=== PATIENT | male | born 1985 | race Caucasian/White ===

== ENCOUNTER 2019-06-04 22:24 | Inpatient (IN) | payer OTHER ==
[~2019-06-04] VITALS: Ht 177.8 cm; Wt 53.9 kg
[2019-06-04 22:52] LABS: BASOPHILS # (AUTO) 0.03 x10^3/uL (0-0.1); BASOPHILS % (AUTO) 0 % (0-1); EOSINOPHILS % (AUTO) 1 % (1-7); LYMPHOCYTES # (AUTO) 2.52 x10^3/uL (1-3.4); LYMPHOCYTES % (AUTO) 36 % (22-44); MD NO; MEAN CORPUSCULAR HEMOGLOBIN 31.6 pg (27.5-34.5); MEAN CORPUSCULAR HGB CONC 33.9 g/dL (33.2-36.2); MEAN CORPUSCULAR VOLUME 93.3 fL (81-97); MEAN PLATELET VOLUME 9.9 fL (7.4-10.4); MONOCYTES % (AUTO) 10 % (2-9); NEUTROPHILS # (AUTO) 3.75 x10^3/uL (1.8-6.8); NEUTROPHILS % (AUTO) 53 % (42-75); PLATELET COUNT 258 x10^3/uL (130-400); RED BLOOD COUNT 3.53 x10^6/uL (4.38-5.82); RED CELL DISTRIBUTION WIDTH 12.9 % (9.4-14.8)
--- NOTE | 2019-06-04 22:59 | NUR ---
TASK RN: LAB CALLED AND REPORTED AN ABG WAS DRAWN VS. VENOUS BLOOD GAS; SPOKE WITH DR. QUARLES AND PER HIM ORDER TO BE CHAGNED TO ABG. LAB RUNNING BLOOD NOW.
[2019-06-04] MEDS ORDERED: SODIUM CHLORIDE 0.9% 1,000ML IVBOLUS ONE ×2 (23:00→23:30)
[2019-06-04 23:05] LABS: ALANINE AMINOTRANSFERASE 18 U/L (12-78); ANION GAP 10 mmol/L (5-15); CALCIUM 8.5 mg/dL (8.5-10.1); CHLORIDE 87 mmol/L (98-107); CREATININE 1.63 mg/dL (0.7-1.3)
[2019-06-04 23:12] LABS: ALKALINE PHOSPHATASE 66 U/L (45-117)
[2019-06-04 23:12] LABS: MICROSCOPIC NOT IND
[2019-06-04 23:16] LABS: ACETONE, SERUM Small (20mg/dL) mg/dL (Negative)
[2019-06-04 23:21] LABS: CULTURE INDICATED? NO
[2019-06-04] MEDS ORDERED: INSULIN REGULAR 100 UNITS/ML, 3ML VIAL IVPush ONE (23:30)
[2019-06-04] MEDS ORDERED: INSULIN SINGLE DOSE, ER ONE ×2 (23:38→23:40)
[2019-06-05] MEDS ORDERED: ONDANSETRON ODT 4 MG PO PRN
[2019-06-05] MEDS ORDERED: POLYETHYLENE GLYCOL 17 GM PACKET PO PRN
[2019-06-05] MEDS ORDERED: BISACODYL 10 MG SUPP PR PRN
[2019-06-05] MEDS ORDERED: ACETAMINOPHEN 325 MG TABLET PO PRN
[2019-06-05] MEDS ORDERED: NAPR500T8 PO (00:25)
[2019-06-05] MEDS ORDERED: ACYC-114 PO (00:26)
[2019-06-05] MEDS ORDERED: PANT40TA5 PO (00:27)
[2019-06-05] MEDS ORDERED: TRAZ-137 PO (00:29)
[2019-06-05] MEDS ORDERED: GING550C2 PO (00:31)
[2019-06-05] MEDS ORDERED: ASCO500C2 PO (00:31)
[2019-06-05] MEDS ORDERED: OMEG1CAP23 PO (00:32)
[2019-06-05 01:10] VITALS: BP 116/71
[2019-06-05] MEDS: NICOTINE 21 MG/24 HR PATCH.TD24 TD SCH (01:53)
[2019-06-05] MEDS: INSULIN LISPRO 100 UNITS/ML, PEN SQ-INSULIN SCH ×6 (02:01→21:48)
[2019-06-05 05:58] LABS: BASOPHILS # (AUTO) 0.07 x10^3/uL (0-0.1); BASOPHILS % (AUTO) 1 % (0-1); EOSINOPHILS # (AUTO) 0.18 x10^3/uL (0-0.4); EOSINOPHILS % (AUTO) 2 % (1-7); LYMPHOCYTES % (AUTO) 55 % (22-44); MD NO; MEAN CORPUSCULAR HEMOGLOBIN 31.3 pg (27.5-34.5); MEAN CORPUSCULAR HGB CONC 33.8 g/dL (33.2-36.2); MEAN CORPUSCULAR VOLUME 92.7 fL (81-97); MEAN PLATELET VOLUME 9.6 fL (7.4-10.4); MONOCYTES # (AUTO) 0.89 x10^3/uL (0.2-0.8); MONOCYTES % (AUTO) 11 % (2-9); NEUTROPHILS % (AUTO) 32 % (42-75); PLATELET COUNT 289 x10^3/uL (130-400); RED BLOOD COUNT 3.53 x10^6/uL (4.38-5.82)
[2019-06-05] MEDS: SODIUM CHLORIDE 0.9% 1,000 ML IV SCH ×2 (05:58)
[2019-06-05 06:07] LABS: ALBUMIN 3.7 g/dL (3.4-5.0); ANION GAP 6 mmol/L (5-15); CALCIUM 8.5 mg/dL (8.5-10.1); CHLORIDE 109 mmol/L (98-107)
[2019-06-05 06:13] LABS: ALANINE AMINOTRANSFERASE 18 U/L (12-78); ALKALINE PHOSPHATASE 56 U/L (45-117); BILIRUBIN,TOTAL 0.9 mg/dL (0.2-1.0); CREATININE 1.12 mg/dL (0.7-1.3); TOTAL PROTEIN 6.4 g/dL (6.4-8.2)
[2019-06-05] MEDS ORDERED: SENNA/DOCUSATE TABLET PO SCH (09:00)
[2019-06-05 12:38] VITALS: BP 141/89
[2019-06-05] MEDS: INSULIN GLARGINE 100 UNITS/ML, PEN SQ-INSULIN SCH ×2 (13:20→21:47)
[2019-06-05 18:41] VITALS: BP 153/81
[2019-06-06] MEDS ORDERED: SODIUM CHLORIDE 0.9% 1,000 ML IV SCH ×2
[2019-06-06 00:29] VITALS: BP 133/73
[2019-06-06] MEDS: NICOTINE 21 MG/24 HR PATCH.TD24 TD SCH (02:13)
[2019-06-06] MEDS: INSULIN LISPRO 100 UNITS/ML, PEN SQ-INSULIN SCH ×2 (02:26→06:16)
[2019-06-06 04:58] LABS: ANION GAP 5 mmol/L (5-15); CHLORIDE 111 mmol/L (98-107)
[2019-06-06 05:01] LABS: CALCIUM 8.3 mg/dL (8.5-10.1); CREATININE 0.92 mg/dL (0.7-1.3)
[2019-06-06 08:19] VITALS: BP 126/82
== END 2019-06-06 09:16 | disposition left against medical advice (07) | DRG 638 ==
LOC: ED 06-05 00:23 → EDIP 06-05 00:33 → 3N 06-05 01:00
PROVIDERS: ADMIT Internal Medicine; ATTEND Internal Medicine
DX: E10.65 Type 1 diabetes mellitus with hyperglycemia (principal); N17.9 Acute kidney failure, unspecified; E87.1 Hypo-osmolality and hyponatremia; D64.9 Anemia, unspecified; F17.210 Nicotine dependence, cigarettes, uncomplicated; F31.9 Bipolar disorder, unspecified; I11.0 Hypertensive heart disease with heart failure; I50.9 Heart failure, unspecified; K21.9 Gastro-esophageal reflux disease without esophagitis; Z79.4 Long term (current) use of insulin; Z82.49 Family history of ischemic heart disease and other diseases of the circulatory system; Z91.19 Patient's noncompliance with other medical treatment and regimen; E10.21 Type 1 diabetes mellitus with diabetic nephropathy; Z88.8 Allergy status to other drugs, medicaments and biological substances; Z53.29 Procedure and treatment not carried out because of patient's decision for other reasons
CPT/HCPCS: 36415; 36600; 80048; 80053; 81003; 82010; 82803; 82962; 83036; 83735; 83880; 85025; 93005; 96374; G0378; J1815; J7030